=== PATIENT | male | born 1970 | race African-American/Black ===

== ENCOUNTER 2021-04-21 16:40 | Emergency (ER) | payer SELFPAY ==
[2021-04-21] MEDS ORDERED: Losartan 50 MG Tab PO ONE (20:11)
[2021-04-21 20:43] LABS: BLOOD UREA NITROGEN,BUN 17 mg/dL (7.0-18.0); CARBON DIOXIDE,CO2 30.1 mmol/L (21.0-32.0); CHLORIDE,CL 103 mmol/L (98-107); GLUCOSE RANDOM 109 mg/dL (74-106); POTASSIUM,K 4.1 mmol/L (3.5-5.1); SODIUM,NA 139 mmol/L (136-148)
== END 2021-04-21 21:16 | disposition home or self-care (01) ==
LOC: MW.ED 16:40
DX: I10 Essential (primary) hypertension (principal); Z79.899 Other long term (current) drug therapy
CPT/HCPCS: 36415; 70450; 80048; 84484; 85025; 93005; 99284; A9270

== ENCOUNTER 2024-07-14 14:37 | Emergency (ER) | payer OTHER, BC ==
[2024-07-14] MEDS: Acetaminophen 500 MG Tab PO ONE (15:04)
[2024-07-14] MEDS: Ondansetron 4 MG Tab.DIS PO ONE (15:05)
[2024-07-14] MEDS: Ibuprofen 600 MG Tab PO ONE (16:56)
== END 2024-07-14 17:03 | disposition home or self-care (01) ==
LOC: MW.ED 14:37
DX: S06.0X0A Concussion without loss of consciousness, initial encounter (principal); S93.401A Sprain of unspecified ligament of right ankle, initial encounter; G44.319 Acute post-traumatic headache, not intractable; Z79.899 Other long term (current) drug therapy; V49.49XA Driver injured in collision with other motor vehicles in traffic accident, initial encounter; Y93.89 Activity, other specified
CPT/HCPCS: 73610; 99284; A9270; 99283